=== PATIENT | male | born 1975 | race Caucasian/White ===

== ENCOUNTER 2021-05-14 02:48 | Emergency (ER) | payer MEDICAID, SELFPAY ==
[2021-05-14 02:52] VITALS: BP 144/95; PULSE 94; RESP 18; TEMP 36.5; O2SAT 99; BMI 34.4
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
[2021-05-14 04:07] VITALS: BP 148/91; PULSE 100; RESP 18; O2SAT 98
[2021-05-14 04:14] VITALS: RESP 18
[2021-05-14] MEDS: ondansetron 2 mg/ML SDV 2 mL 4 MG IVP (04:14)
[2021-05-14] MEDS: morphine 4 mg/mL SDV 1 mL IVP (04:14)
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
[2021-05-14] MEDS: nicotine 21 mg Patch 1 PATCH TRANSDERMA (06:00)
[2021-05-14 07:23] VITALS: BP 148/51; PULSE 72; RESP 16; TEMP 36.6; O2SAT 96
== END 2021-05-14 07:23 | disposition short-term general hospital (02) ==
PROVIDERS: Emergency Provider Emergency Medicine
DX: S06.300A Unspecified focal traumatic brain injury without loss of consciousness, initial encounter (principal); E23.6 Other disorders of pituitary gland; Y04.2XXA Assault by strike against or bumped into by another person, initial encounter
CPT/HCPCS: 70450; 70486; 96374; 96375; 99285; J2270; J2405

== ENCOUNTER 2021-09-08 17:25 | Emergency (ER) | payer MEDICAID, SELFPAY ==
[2021-09-08 17:26] VITALS: TEMP 36.8; BMI 33.2
[2021-09-08 17:35] VITALS: BP 138/92; PULSE 103; RESP 20; TEMP 36.8; O2SAT 97
--- NOTE | 2021-09-08 17:35 | ECG_ITS ---
[facility] Test Date: 2021-09-08 Pat Name: Johnathon Reilly Department: Room: Gender: Male English As A Second Language Instructor: : 1975 Requested By: Jitendra Ramirez Order Number: [id number] Marcos MD: Carlos Xavier M.D. Measurements Intervals [place] Rate: 102 P: 10 DC: 128 QRS: 18 QRSD: 96 T: 8 QT: 344 QTc: 448 Interpretive Statements SINUS TACHYCARDIA POSSIBLE LEFT ATRIAL ENLARGEMENT [-0.1mV P-WAVE IN V1/V2] MODERATE ST DEPRESSION [0.05+ mV ST DEPRESSION] No previous ECG available for comparison Electronically Signed On 09-09-2021 10:37:54 CDT by Carlos Xavier M.D. [id number]
--- NOTE | 2021-09-08 17:37 | XRR_ITS ---
PROCEDURE INFORMATION: Exam: XR Chest Exam date and time: 09/08/2021 5:48 PM Age: 46 years old Clinical indication: Cough and dyspnea; Smoker's cough; Additional info: Dyspnea/cough TECHNIQUE: Imaging protocol: Radiologic exam of the chest. Views: 1 view. COMPARISON: No relevant prior studies available. FINDINGS: Lungs: Unremarkable. No consolidation. Pleural spaces: Unremarkable. No pleural effusion. No pneumothorax. Heart/Mediastinum: Unremarkable. No cardiomegaly. Bones/joints: Unremarkable. XR/XR chest 1V portable [id number] IMPRESSION: No acute findings.
[2021-09-08] MEDS: aspirin 81 mg Chew Tablet 324 MG PO (17:45)
[2021-09-08 17:53] LABS: Basophils # 0.1 10^3/uL (0.0-0.1); Eosinophils # 0.1 10^3/uL (0.0-0.8); Eosinophils % 0.9 %; Hematocrit 40.1 % (42.0-52.0); Hemoglobin 13.3 g/dL (11.7-16.6); Lymphocytes # 4.7 10^3/uL (0.8-4.8); Lymphocytes % 37.3 %; Mean Corpuscular HGB Conc 33.2 g/dL (30.0-36.0); Mean Corpuscular Hemoglobin 32.2 pg (28.0-34.0); Mean Corpuscular Volume 97.1 fl (80-94); Mean Platelet Volume 9.6 fL (7.4-10.4); Monocytes # 0.9 10^3/uL (0.2-0.9); Monocytes % 6.8 %; Neutrophils # 6.74 10^3/uL (1.8-7.7); Neutrophils % 53.8 %; Nucleated Red Blood Cells % 0 %; Platelet Count 309 10^3/cmm (130-400); Red Blood Count 4.13 10^6/uL (4.1-5.3); Red Cell Distribution Width 14.7 % (12.1-15.1); White Blood Count 12.6 10^3/uL (4.0-10.0)
--- NOTE | 2021-09-08 18:02 | PC.NURSE ---
PATIENT INCREASING IN AGGRESSION BECAUSE NURSE WILL NOT PROVIDE FOOD. SPOKE WITH PROVIDER, FOOD CANNOT BE GIVEN UNTIL TEST ARE BACK PER PROVIDER. PATIENT STATES THAT HE WILL NOT STOP PRESSING THE CALL LIGHT UNTIL YOU FEED ME. PROVIDER NOTIFIED.
--- NOTE | 2021-09-08 18:11 | ED_ITS ---
Documented by User: Jitendra Borrego DO 09/17/21 20:20 HPI - Chest Pain General: Chief Complaint: Chest Pain Stated Complaint: CHEST PAIN Time Seen by Provider: 09/08/21 17:29 Source: patient Mode of arrival: EMS Limitations: no limitations History of Present Illness: 46-year-old male presents emergency room with a complaint of chest pain. States he was at rest had chest pain center of his chest rating down his right arm. It is for the most part resolved at this time. He relates it to a pituitary mass arrival removed earlier this month. He has been getting shortness of breath and chest discomfort that he states is gotten progressively worsened over the last week to the point where he states he cannot walk around within his trailer home without getting short of breath. MD complaint: chest pain Onset (ago): week(s) Timing of current episode: episodic Prior episodes: Yes Onset: during rest and during exertion Pain location: right chest Pain radiation: right arm and right shoulder Severity: mild Quality: tightness Relieving factors: nothing Exacerbating factors: nothing Associated symptoms: Reports dyspnea; Deny abdominal pain, diaphoresis, fever(s), leg edema, nausea, palpitations, sense of impending doom, syncope or vomiting Treatment prior to arrival: none Review of Systems Const: Denies: fever(s) or diaphoresis ENMT: Denies: throat pain, ear or mastoid pain, nasal discharge or nasal congestion Card: Denies: palpitations or syncope Resp: Reports: dyspnea GI: Denies: abdominal pain, nausea or vomiting : Denies: flank pain, dysuria, urinary frequency or urinary urgency Skin/Breast: Denies: rash or pruritus [facility] ED PFSH: Medical History (Updated 09/16/21 @ 00:01 by ) Hypertension Pituitary adenoma Surgical History (Updated 09/08/21 @ 18:17 by Jitendra Borrego DO) Status post transsphenoidal pituitary resection Social History (Updated 09/08/21 @ 18:17 by Jitendra Borrego DO) Smoking and tobacco status: current every day smoker Alcohol intake: never Physical Exam Const: COMMON NORMALS: no acute distress GENERAL APPEARANCE: cooperative and comfortable ORIENTATION/CONSCIOUSNESS: Yes awake, Yes oriented to person, Yes oriented to place and Yes oriented to time HENMT: COMMON NORMALS: normocephalic, atraumatic and hearing grossly normal bilaterally HEAD & SCALP: normocephalic and atraumatic OTHER: Atrophy of the left eye congenital Resp: COMMON NORMALS: normal respiratory effort, No retractions, No use of accessory muscles and clear to auscultation bilaterally AUSCULTATION: clear to auscultation bilaterally Cardio: COMMON NORMALS: regular rate, regular rhythm and No murmurs present (Cardio) RATE: regular rate RHYTHM: regular rhythm GI: COMMON NORMALS: Soft to palpation and No hepatosplenomegaly present AUSCULTATION: Yes normoactive bowel sounds PALPATION: Yes Soft to palpation, No Tenderness to palpation present (GI), No Guarding due to palpation present (GI) and Yes No hepatosplenomegaly present Extremity: COMMON NORMALS: normal to inspection, capillary refill normal, no clubbing, cyanosis or edema, no calf tenderness and no pedal edema Neuro: SENSORIUM/ORIENTATION: Yes oriented to person, Yes oriented to place and Yes oriented to time Skin: COMMON NORMALS: no rashes or lesions noted GENERAL SKIN EXAM: no rashes or lesions noted Course Vital Signs: Vital signs: Vital Signs Temperature 98.3 F 09/08/21 17:35 Pulse Rate 89 09/08/21 19:13 Respiratory Rate 18 09/08/21 18:56 Blood Pressure 105/53 09/08/21 19:13 Pulse Oximetry 95 09/08/21 19:13 Oxygen Delivery Mo thod 09/08/21 19:13 MDM - Chest Pain Medical Decision Making Care signed out to Dr. Joshua at change of shift. See final notes for diagnosis and disposition. 46-year-old male checked out to me by Dr. Borrego at shift change. This gentleman is experiencing right-sided chest pain radiating into his neck and right arm, worse with exertion. He is pain-free currently his EKG shows a sinus rhythm with normal axis and normal intervals. There are no acute ST changes. His rate is 85 his initial troponin was 16, with a delta of 2.96. His chest x- ray is negative. Other laboratory is benign. This could be a version of stable angina, the patient does smoke. Currently he is not hypoxic, nontachycardic. He will be set up as an outpatient for stress testing. He has an appointment with his PCP this coming week. To medications, which she is out of, famotidine and senna are refilled for him Lab Data : 09/08/21 17:44 09/08/21 17:44 Radiology Impressions Chest X-Ray 09/08/21 17:37 IMPRESSION: No acute findings. Laboratory Results WBC 12.6 10^3/uL (4.0-10.0) H 09/08/21 17:44 RBC 4.13 10^6/uL (4.1-5.3) 09/08/21 17:44 Hgb 13.3 g/dL (11.7-16.6) 09/08/21 17:44 Hct 40.1 % (42.0-52.0) L 09/08/21 17:44 MCV 97.1 fl (80-94) H 09/08/21 17:44 MCH 32.2 pg (28.0-34.0) 09/08/21 17:44 MCHC 33.2 g/dL (30.0-36.0) 09/08/21 17:44 RDW 14.7 % (12.1-15.1) 09/08/21 17:44 Plt Count 309 10^3/cmm (130-400) 09/08/21 17:44 MPV 9.6 fL (7.4-10.4) 09/08/21 17:44 Neut % (Auto) 53.8 % 09/08/21 17:44 Lymph % (Auto) 37.3 % 09/08/21 17:44 [place] % (Auto) 6.8 % 09/08/21 17:44 Eos % (Auto) 0.9 % 09/08/21 17:44 Baso % (Auto) 1.0 % 09/08/21 17:44 Neut # (Auto) 6.74 10^3/uL (1.8-7.7) 09/08/21 17:44 Lymph # (Auto) 4.7 10^3/uL (0.8-4.8) 09/08/21 17:44 [place] # (Auto) 0.9 10^3/uL (0.2-0.9) 09/08/21 17:44 Eos # (Auto) 0.1 10^3/uL (0.0-0.8) 09/08/21 17:44 Baso # (Auto) 0.1 10^3/uL (0.0-0.1) 09/08/21 17:44 Nucleated RBC % (auto) 0 % 09/08/21 17:44 Nucleated RBCs # 0.0 /100WBC 09/08/21 17:44 Sodium 144 mmol/L (136-145) 09/08/21 17:44 Potassium 3.4 mmol/L (3.5-5.1) L 09/08/21 17:44 Chloride 105 mmol/L (98-107) 09/08/21 17:44 Carbon Dioxide 22 mmol/L (22-29) 09/08/21 17:44 Anion Gap 20.4 (5-19) H 09/08/21 17:44 BUN 12 mg/dL (6-20) 09/08/21 17:44 Creatinine 0.6 mg/dL (0.7-1.2) L 09/08/21 17:44 GFR Calculation 146.4 mL/min (90-130) H 09/08/21 17:44 Glucose 98 mg/dL (65-115) 09/08/21 17:44 Calculated Osmolality 298 mOsm/kg (285-295) H 09/08/21 17:44 Calcium 9.6 mg/dL (8.5-10.5) 09/08/21 17:44 Total Bilirubin 0.2 mg/dL (0.15-1.2) 09/08/21 17:44 AST 38 U/L (0-40) 09/08/21 17:44 ALT 42 U/L (0-41) H 09/08/21 17:44 Alkaline Phosphatase 112 IU/L (40-130) 09/08/21 17:44 Troponin T Baseline 16 ng/L (0-15) H 09/08/21 17:44 Troponin T 120 Minute 18.96 ng/L (0-15) H 09/08/21 19:25 Delta Troponin T 2.96 ABS# (0-10) 09/08/21 19:25 Total Protein 7.6 g/dL (6.6-8.7) 09/08/21 17:44 Albumin 4.4 g/dL (3.5-5.2) 09/08/21 17:44 Globulin 3.2 g/dL (1.3-4.6) 09/08/21 17:44 Discharge Plan Discharge Patient Disposition: Home Clinical Impression: Chest pain Condition: Stable Prescriptions: New famotidine 20 mg tablet 20 mg PO BID Qty: 60 0RF senna 8.6 mg capsule 8.6 mg PO BID PRN (Reason: constipation) Qty: 60 0RF Discharge Orders: Discharge ED (Routine); Ordered 09/08/21 Ordered By: Edouard Joshua Patient Instructions: Chest Pain (ED) Activity Restrictions/Additional Instructions: Case management will attempt to set you up as an outpatient for stress testing. See your doctor next week as scheduled. Return for worsening chest pain or shortness of breath, development of fever greater than 100, cough, any other concerning symptoms in the meantime Coding Level of Care Code ED Clinical Operations Consultant for Chg Fwd Exam Detailed Documented by User: Edouard Joshua DO 09/08/21 20:48 HPI - Chest Pain General: Chief Complaint: Chest Pain Stated Complaint: CHEST PAIN Time Seen by Provider: 09/08/21 17:29 [facility] ED PFSH: Medical History (Updated 09/16/21 @ 00:01 by ) Hypertension Pituitary adenoma Surgical History (Updated 09/08/21 @ 18:17 by Jitendra Borrego DO) Status post transsphenoidal pituitary resection Social History (Updated 09/08/21 @ 18:17 by Jitendra Borrego DO) Smoking and tobacco status: current every day smoker Alcohol intake: never Course Vital Signs: Vital signs: Vital Signs Temperature 98.3 F 09/08/21 17:35 Pulse Rate 89 09/08/21 19:13 Respiratory Rate 18 09/08/21 18:56 Blood Pressure 105/53 09/08/21 19:13 Pulse Oximetry 95 09/08/21 19:13 Oxygen Delivery Me thod 09/08/21 19:13 MDM - Chest Pain Medical Decision Making 46-year-old male checked out to me by Dr. Borrego at shift change. This gentleman is experiencing right-sided chest pain radiating into his neck and right arm, worse with exertion. He is pain-free currently his EKG shows a sinus rhythm with normal axis and normal intervals. There are no acute ST changes. His rate is 85 his initial troponin was 16, with a delta of 2.96. His chest x- ray is negative. Other laboratory is benign. This could be a version of stable angina, the patient does smoke. Currently he is not hypoxic, nontachycardic. He will be set up as an outpatient for stress testing. He has an appointment with his PCP this coming week. To medications, which she is out of, famotidine and senna are refilled for him Lab Data : 09/08/21 17:44 09/08/21 17:44 Radiology Impressions Chest X-Ray 09/08/21 17:37 IMPRESSION: No acute findings. Laboratory Results WBC 12.6 10^3/uL (4.0-10.0) H 09/08/21 17:44 RBC 4.13 10^6/uL (4.1-5.3) 09/08/21 17:44 Hgb 13.3 g/dL (11.7-16.6) 09/08/21 17:44 Hct 40.1 % (42.0-52.0) L 09/08/21 17:44 MCV 97.1 fl (80-94) H 09/08/21 17:44 MCH 32.2 pg (28.0-34.0) 09/08/21 17:44 MCHC 33.2 g/dL (30.0-36.0) 09/08/21 17:44 RDW 14.7 % (12.1-15.1) 09/08/21 17:44 Plt Count 309 10^3/cmm (130-400) 09/08/21 17:44 MPV 9.6 fL (7.4-10.4) 09/08/21 17:44 Neut % (Auto) 53.8 % 09/08/21 17:44 Lymph % (Auto) 37.3 % 09/08/21 17:44 [place] % (Auto) 6.8 % 09/08/21 17:44 Eos % (Auto) 0.9 % 09/08/21 17:44 Baso % (Auto) 1.0 % 09/08/21 17:44 Neut # (Auto) 6.74 10^3/uL (1.8-7.7) 09/08/21 17:44 Lymph # (Auto) 4.7 10^3/uL (0.8-4.8) 09/08/21 17:44 [place] # (Auto) 0.9 10^3/uL (0.2-0.9) 09/08/21 17:44 Eos # (Auto) 0.1 10^3/uL (0.0-0.8) 09/08/21 17:44 Baso # (Auto) 0.1 10^3/uL (0.0-0.1) 09/08/21 17:44 Nucleated RBC % (auto) 0 % 09/08/21 17:44 Nucleated RBCs # 0.0 /100WBC 09/08/21 17:44 Sodium 144 mmol/L (136-145) 09/08/21 17:44 Potassium 3.4 mmol/L (3.5-5.1) L 09/08/21 17:44 Chloride 105 mmol/L (98-107) 09/08/21 17:44 Carbon Dioxide 22 mmol/L (22-29) 09/08/21 17:44 Anion Gap 20.4 (5-19) H 09/08/21 17:44 BUN 12 mg/dL (6-20) 09/08/21 17:44 Creatinine 0.6 mg/dL (0.7-1.2) L 09/08/21 17:44 GFR Calculation 146.4 mL/min (90-130) H 09/08/21 17:44 Glucose 98 mg/dL (65-115) 09/08/21 17:44 Calculated Osmolality 298 mOsm/kg (285-295) H 09/08/21 17:44 Calcium 9.6 mg/dL (8.5-10.5) 09/08/21 17:44 Total Bilirubin 0.2 mg/dL (0.15-1.2) 09/08/21 17:44 AST 38 U/L (0-40) 09/08/21 17:44 ALT 42 U/L (0-41) H 09/08/21 17:44 Alkaline Phosphatase 112 IU/L (40-130) 09/08/21 17:44 Troponin T Baseline 16 ng/L (0-15) H 09/08/21 17:44 Troponin T 120 Minute 18.96 ng/L (0-15) H 09/08/21 19:25 Delta Troponin T 2.96 ABS# (0-10) 09/08/21 19:25 Total Protein 7.6 g/dL (6.6-8.7) 09/08/21 17:44 Albumin 4.4 g/dL (3.5-5.2) 09/08/21 17:44 Globulin 3.2 g/dL (1.3-4.6) 09/08/21 17:44 Discharge Plan Discharge Patient Disposition: Home Clinical Impression: Chest pain Condition: Stable Prescriptions: New famotidine 20 mg tablet 20 mg PO BID Qty: 60 0RF senna 8.6 mg capsule 8.6 mg PO BID PRN (Reason: constipation) Qty: 60 0RF Discharge Orders: Discharge ED (Routine); Ordered 09/08/21 Ordered By: Edouard Joshua Patient Instructions: Chest Pain (ED) Activity Restrictions/Additional Instructions: Case management will attempt to set you up as an outpatient for stress testing. See your doctor next week as scheduled. Return for worsening chest pain or shortness of breath, development of fever greater than 100, cough, any other concerning symptoms in the meantime Coding Level of Care Code ED Clinical Operations Consultant for Ryan Fwd Exam Detailed
[2021-09-08 18:16] LABS: Alanine Aminotransferase 42 U/L (0-41); Albumin Level 4.4 g/dL (3.5-5.2); Alkaline Phosphatase 112 IU/L (40-130); Anion Gap 20.4 (5-19); Aspartate Amino Transferase 38 U/L (0-40); Blood Urea Nitrogen 12 mg/dL (6-20); Calcium 9.6 mg/dL (8.5-10.5); Carbon Dioxide 22 mmol/L (22-29); Chloride 105 mmol/L (98-107); Globulin 3.2 g/dL (1.3-4.6); Glomerular Filtration Rate 146.4 mL/min (90-130); Glucose 98 mg/dL (65-115); Osmolality Calculated 298 mOsm/kg (285-295); Potassium 3.4 mmol/L (3.5-5.1); Sodium 144 mmol/L (136-145); Total Bilirubin 0.2 mg/dL (0.15-1.2); Total Protein 7.6 g/dL (6.6-8.7)
[2021-09-08 18:18] LABS: Troponin(5th) Baseline 16 ng/L (0-15)
[2021-09-08 18:56] VITALS: BP 102/58; PULSE 92; RESP 18; O2SAT 92
[2021-09-08 19:13] VITALS: BP 105/53; PULSE 89; O2SAT 95
--- NOTE | 2021-09-08 19:53 | ECG_ITS ---
[facility] Test Date: 2021-09-08 Pat Name: Johnathon Reilly Department: Room: Gender: Male Wet Cotton Feeder: : 1975 Requested By: Jitendra Ramirez Order Number: [id number] Reading MD: Carlos Xavier M.D. Measurements Intervals [place] Rate: 85 P: 46 CA: 174 QRS: 27 QRSD: 95 T: 8 QT: 380 QTc: 452 Interpretive Statements SINUS RHYTHM Compared to ECG 09/08/2021 17:35:59 Sinus tachycardia no longer present ST (T wave) deviation no longer present Electronically Signed On 09-09-2021 10:38:15 CDT by Carlos Xavier M.D. [id number]
[2021-09-08 20:02] LABS: Troponin 5 2HR 18.96 ng/L (0-15)
[2021-09-08 20:03] LABS: Troponin 5 2HR Delta 2.96 ABS# (0-10)
--- NOTE | 2021-09-10 09:54 | DCPLANNER ---
Addendum entered by Nicolle Rowland 02/19/22 12:57: Patient had a follow up appointment scheduled for a stress test - patient did not attend appointment. Original Note: oncology transplant network manager had message to schedule an outpatient stress test for patient. oncology transplant network manager faxed a signed order for a stress test to centralized scheduling, who will call patient with appointment information.
== END 2021-09-08 21:10 | disposition home or self-care (01) ==
PROVIDERS: Family Medicine; Emergency Provider Emergency Medicine
DX: R07.9 Chest pain, unspecified (principal); I10 Essential (primary) hypertension; F17.210 Nicotine dependence, cigarettes, uncomplicated
CPT/HCPCS: 36415; 71045; 80053; 84484; 85025; 93005; 99285